=== PATIENT | male | born 1975 | race African-American/Black ===

== ENCOUNTER 2016-12-15 17:13 | Emergency (ER) | payer OTHER ==
[2016-12-15] MEDS ORDERED: Cyclobenzaprine 10 MG TAB ONE (17:34)
[2016-12-15] MEDS ORDERED: Acetaminophen 500 MG TAB ONE (17:34)
== END 2016-12-15 17:48 | disposition home or self-care (01) ==
LOC: NAV ERS 17:13
DX: S39.012A Strain of muscle, fascia and tendon of lower back, initial encounter (principal); S16.1XXA Strain of muscle, fascia and tendon at neck level, initial encounter; G44.209 Tension-type headache, unspecified, not intractable; V43.62XA Car passenger injured in collision with other type car in traffic accident, initial encounter
CPT/HCPCS: 99284